=== PATIENT | female | born 1985 | race Caucasian/White ===

== ENCOUNTER 2018-10-03 13:24 | Emergency (ER) | payer MEDICAID ==
[~2018-10-03] VITALS: Ht 162.6 cm; Wt 65.8 kg
[2018-10-03 13:49] VITALS: BP 96/74
--- NOTE | 2018-10-03 13:52 | NUR ---
PT AMBULATES W/ STEADY GAIT AND VSS TO THE LOBBY TO WAIT FOR AN AVAILABLE BED.
--- NOTE | 2018-10-03 16:02 | NUR ---
PT AMBULATED TO ER BED 1
--- NOTE | 2018-10-03 16:15 | NUR ---
32YO F BIB SELF W/C/O BACK PAIN SINCE LAST NIGHT. PT STATES SUDDEN ONSET. PT DENIES ANY RECENT INJURY OR TRAUMA. NO BRUSING NOTED, NO SWELLING , NO REDNESS. 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 PT DENIES ANY PAINFUL URINATION OR BURNING, CP , SOB, OR ABD PAIN. WILL CONTINUE TO MONITOR. ER MD MADE AWARE .
[2018-10-03] MEDS ORDERED: KETOROLAC 60 MG/2 ML VIAL IM ONE (16:35)
[2018-10-03] MEDS ORDERED: traMADol 50 MG TAB PO ONE (16:35)
--- NOTE | 2018-10-03 16:43 | NUR ---
PT AMBULATED TO THE RRESTROOM IN NO APPEARENT DISTRESS. PT PROVIDES A URINE SAMPLE
[2018-10-03 17:35] LABS: APPEARANCE,URINE CLEAR (CLEAR); BILIRUBIN,URINE NEGATIVE (NEGATIVE); BLOOD, URINE NEGATIVE (NEGATIVE); COLOR,URINE YELLOW (YELLOW); LEUKOCYTE ESTERASE ,URINE SMALL (NEGATIVE); NITRITE, URINE NEGATIVE (NEGATIVE); PH,URINE 6.5 (5.0-9.0); UGLUCOSE NEGATIVE (NEGATIVE)
[2018-10-03 17:51] LABS: RBC,URINE 0-5 (RARE) /HPF (0-5)
[2018-10-03 18:00] VITALS: BP 119/82
--- NOTE | 2018-10-03 18:00 | NUR ---
Patient discharged with v/s stable. Written and verbal after care instructions given and explained. Patient alert, oriented and verbalized understanding of instructions. Ambulatory with steady gait. All questions addressed prior to discharge. ID band removed. Patient advised to follow up with PMD. Rx of VOLTAREN 100MG given. Patient educated on indication of medication including possible reaction and side effects. Opportunity to ask questions provided and answered.
== END 2018-10-03 18:00 | disposition home or self-care (01) ==
LOC: MED 13:24
DX: M25.512 Pain in left shoulder (principal); R07.89 Other chest pain; K21.9 Gastro-esophageal reflux disease without esophagitis
CPT/HCPCS: 71046; 81001; 81025; 87086; 96372; 99284; J1885; 87186

== ENCOUNTER 2022-12-08 11:25 | Emergency (ER) | payer MEDICAID ==
[~2022-12-08] VITALS: Ht 154.9 cm; Wt 63.5 kg
[2022-12-08 11:35] VITALS: BP 100/65
[2022-12-08] MEDS ORDERED: KETOROLAC 30 MG/ML VIAL IM ONE (12:20)
[2022-12-08] MEDS ORDERED: DEXAMETHASONE 4 MG/ML VIAL PO ONE (12:25)
--- NOTE | 2022-12-08 12:34 | NUR ---
COVID, FLU SWABS DONE.
--- NOTE | 2022-12-08 12:35 | NUR ---
36 y/o female bib self, c/o cp radiates to upper back with cough exertion, sore throat, and n&v since yesterday. pt denies sick contacts at home, 8/10 pain at this time. pmh: denies nka med: denies
--- NOTE | 2022-12-08 12:37 | NUR ---
PT TAKEN TO X RAY
[2022-12-08] MEDS ORDERED: PROM118S5 PO (13:45)
[2022-12-08] MEDS ORDERED: NIRM1TAB PO (13:45)
[2022-12-08] MEDS ORDERED: IBUP-2213 PO (13:45)
--- NOTE | 2022-12-08 14:50 | NUR ---
Patient discharged with v/s stable. Written and verbal after care instructions given and explained. Patient alert, oriented and verbalized understanding of instructions. Ambulatory with steady gait. All questions addressed prior to discharge. ID band removed. Patient advised to follow up with PMD. Rx of IBUPROFEN, PAXLOVID, PROMETHAZINE given. Patient educated on indication of medication including possible reaction and side effects. Opportunity to ask questions provided and answered.
[2022-12-08 14:51] VITALS: BP 112/67
== END 2022-12-08 14:50 | disposition home or self-care (01) ==
LOC: MED 11:25
DX: U07.1 COVID-19 (principal); K21.9 Gastro-esophageal reflux disease without esophagitis
CPT/HCPCS: 71045; 81025; 87426; 87804; 96372; 99284; J1100; J1885

== ENCOUNTER 2023-12-02 18:07 | Emergency (ER) | payer MEDICAID ==
[~2023-12-02] VITALS: Ht 157.5 cm; Wt 61.2 kg
[~2023-12-02 18:07] MED LIST: IBUP-2213 PO; NIRM1TAB PO; PROM118S5 PO
[2023-12-02 18:35] VITALS: BP 103/67; PULSE 89; RESP 20; TEMP 98; O2SAT 99
[2023-12-02] MEDS ORDERED: TETRACAINE 1% 2 ML AMP INJ ONE (18:45)
[2023-12-02] MEDS ORDERED: FLUORESCEIN OPTH STRIP 1 MG OP ONE (18:45)
[2023-12-02] MEDS ORDERED: TETRACAINE HCL/PF 0.5% OPTH 4 ML BTL ONE (18:49)
[2023-12-02] MEDS ORDERED: TETRACAINE HCL/PF 0.5% OPTH 4 ML BTL OP ONE (18:55)
[2023-12-02] MEDS ORDERED: POLY10DR5 OP (19:04)
== END 2023-12-02 19:15 | disposition home or self-care (01) ==
LOC: MED 18:07
DX: H53.8 Other visual disturbances (principal); Z79.899 Other long term (current) drug therapy
CPT/HCPCS: 99283; J3490

== ENCOUNTER 2023-12-12 18:50 | Emergency (ER) | payer MEDICAID, OTHER ==
[~2023-12-12] VITALS: Ht 157.5 cm; Wt 65.8 kg
[~2023-12-12 18:50] MED LIST changes: +POLY10DR5 OP
[2023-12-12 19:16] VITALS: BP 134/78; PULSE 88; RESP 16; TEMP 97.6; O2SAT 98
[2023-12-12] MEDS ORDERED: METH4TAB1 PO (23:09)
[2023-12-12] MEDS ORDERED: BENZ200C4 PO (23:09)
== END 2023-12-12 23:10 | disposition home or self-care (01) ==
LOC: MED 18:50
DX: J98.8 Other specified respiratory disorders (principal); Z79.899 Other long term (current) drug therapy
CPT/HCPCS: 71045; 99283; Q0092

== ENCOUNTER 2023-12-15 19:47 | Emergency (ER) | payer OTHER ==
[~2023-12-15] VITALS: Ht 157.5 cm; Wt 61.2 kg
[~2023-12-15 19:47] MED LIST changes: +BENZ200C4 PO; +METH4TAB1 PO
[2023-12-15 19:53] VITALS: BP 106/74; PULSE 102; RESP 19; TEMP 98.1; O2SAT 97
[2023-12-15] MEDS ORDERED: PROM118S5 PO (21:24)
[2023-12-15] MEDS ORDERED: ALBU0.0912 IH (21:24)
== END 2023-12-15 21:33 | disposition home or self-care (01) ==
LOC: MED 19:47
DX: R05.9 Cough, unspecified (principal); R51.9 Headache, unspecified; Z79.899 Other long term (current) drug therapy
CPT/HCPCS: 99283

== ENCOUNTER 2024-07-20 10:32 | Emergency (ER) | payer OTHER ==
[~2024-07-20] VITALS: Ht 157.5 cm; Wt 72.6 kg
[~2024-07-20 10:32] MED LIST changes: +ALBU0.0912 IH; +LID5T TP; +METH-1681 PO
[2024-07-20 11:00] VITALS: BP 113/56; PULSE 80; RESP 18; TEMP 97.4; O2SAT 99
[2024-07-20 12:05] LABS: FLU A ANTIGEN negative (NEGATIVE); FLU B ANTIGEN NEGATIVE (NEGATIVE)
[2024-07-20] MEDS ORDERED: SUD30 PO (12:17)
[2024-07-20] MEDS ORDERED: ONDA-188 SL (12:17)
[2024-07-20] MEDS ORDERED: NAPR-1704 PO (12:17)
[2024-07-20] MEDS ORDERED: KETOROLAC 30 MG/ML VIAL IM ONE (12:20)
[2024-07-20 12:48] VITALS: BP 113/56; PULSE 80; RESP 18; TEMP 97.4; O2SAT 99
== END 2024-07-20 12:48 | disposition home or self-care (01) ==
LOC: MED 10:32
DX: B34.9 Viral infection, unspecified (principal); Z20.822 Contact with and (suspected) exposure to COVID-19; K21.9 Gastro-esophageal reflux disease without esophagitis; Z79.899 Other long term (current) drug therapy
CPT/HCPCS: 99283